=== PATIENT | female | born 1975 | race Caucasian/White ===

== ENCOUNTER → 2016-10-10 | Outpatient (CLI) | payer OTHER ==
--- NOTE | 2016-10-12 07:52 | MM ---
Reason for exam: screening (asymptomatic). Last mammogram was performed 1 year and 10 months ago. History: Family history of breast cancer in maternal grandmother. Physical Findings: A clinical breast exam by your physician is recommended on an annual basis and results should be correlated with mammographic findings. MG 3D Screening Mammo W/Cad Bilateral CC and MLO view(s) were taken. Prior study comparison: November 30, 2014, bilateral MG screening mammo w CAD. There are scattered fibroglandular densities. 7mm circumscribed mass 6-7 o'clock subareolar right breast. New calcifications 7 o'clock central anterior right breast. ASSESSMENT: Incomplete: need additional imaging evaluation, BI-RAD 0 RECOMMENDATION: Special view mammogram and ultrasound of the right breast. [facility] will attempt to contact patient to return for supplemental views and ultrasound.
== END | disposition home or self-care (01) ==
LOC: RADMAMWWP 12:28
PROVIDERS: ATTEND Family Medicine
DX: Z12.31 Encounter for screening mammogram for malignant neoplasm of breast (principal)
CPT/HCPCS: 77063; G0202

== ENCOUNTER → 2016-10-19 | Outpatient (CLI) | payer OTHER ==
--- NOTE | 2016-10-19 14:48 | MM ---
Reason for exam: additional evaluation requested from abnormal screening. Last mammogram was performed less than 1 month ago. History: Family history of breast cancer in maternal grandmother. Physical Findings: Nurse did not find any significant physical abnormalities on exam. MG 3D Work Up W/Cad RT LM, CC with magnification, and LM with magnification view(s) were taken of the right breast. Prior study comparison: October 10, 2016, bilateral MG 3d screening mammo w/cad. November 30, 2014, bilateral MG screening mammo w CAD. Calcifications in the right breast are likely within the skin. 6 month follow up is recommended. These results were verbally communicated with the patient and result sheet given to the patient on 10/19/16. ASSESSMENT: Incomplete: need additional imaging evaluation, BI-RAD 0 RECOMMENDATION: Ultrasound of the right breast.
--- NOTE | 2016-10-19 14:50 | USB ---
Reason for exam: additional evaluation requested from abnormal screening. History: Family history of breast cancer in maternal grandmother. US Breast Workup Limited RT Right breast ultrasound demonstrates a 0.5 x 0.5 x 0.6cm oval, solid, hypoechoic lesion at 7 o'clock for which a tissue biopsy is recommended. These results were verbally communicated with the patient and result sheet given to the patient on 10/19/16. ASSESSMENT: Suspicious, BI-RAD 4 RECOMMENDATION: Ultrasound core biopsy of the right breast. Called Dr. Crowe with mammographic findings and has scheduled an appointment for the patient for 10/25/16 at 11:[address] Alaniz. PRELIMINARY REPORT CALLED AND FAXED TO DR. ALANIZ ON 10/19/16 AT 300/TP.
== END | disposition home or self-care (01) ==
LOC: RADMAMWWP 13:33
PROVIDERS: ATTEND Family Medicine
DX: R92.8 Other abnormal and inconclusive findings on diagnostic imaging of breast (principal)
CPT/HCPCS: 76642; G0206; G0279

== ENCOUNTER → 2016-11-07 | Day surgery (SDC) | payer OTHER ==
[~2016-11-07] MED LIST: ALPRAZolam 0.25 MG TAB ONE; BACITRACIN OINT 1 EACH PACKET TOPICAL ONE; LIDOCAINE 1% INJ 10MG/ML (20 ML MDV) ONE; SODIUM BICARB 4% 5 ML VIAL (0.48 MEQ/ML) ONE
--- NOTE | 2016-11-07 14:36 | USB ---
EXAMINATION TYPE: US biopsy breast VAD RT, MG diagnostic mammo RT wo CAD DATE OF EXAM: 11/07/2016 1:10 PM CLINICAL HISTORY: 41-year-old female with R92.8 Abnormal mammo and ultrasound abnormality referred for biopsy. TECHNIQUE: Ultrasound guided core biopsy of the 7:00 position right breast. COMPARISON: 10/19/2016 FINDINGS: The procedure of ultrasound guided core biopsy was explained to the patient. Benefits, alternatives, and risks were discussed. An informed consent was then obtained. The patient was placed in supine positioning for imaging and for the procedure. The overlying skin was prepped and draped in usual sterile fashion. Lidocaine buffered with bicarbonate was used as anesthetic into the skin and subcutaneous tissue up to area of concern in the 7:00 position right breast close to the nipple. Under ultrasound guidance, a 13-gauge vacuum-assisted mammotome Elite biopsy gun was used to obtain biopsy gun device was used to obtain 7 core samples. Following this, a coil clip was left in lesion. The patient tolerated the procedure well without any immediate complication. The patient was kept in the radiology department for short stay after the procedure and then discharged home in stable condition. Postprocedure mammogram shows coil clip in place. IMPRESSION: Successful, uncomplicated ultrasound guided core biopsy of area of concern in the 7:00 position right breast, full pathology results to follow. RECOMMENDATION: 1. Follow-up pathology. 2. If benign results, six-month follow-up mammogram for right breast microcalcifications is recommended. Suspected skin calcifications. Pathology Results: Benign BREAST, RIGHT, CORE BIOPSY: CONSISTENT WITH FIBROADENOMA AND FIBROCYSTIC CHANGES INCLUDING CYSTS AND FIBROSIS. Recommendation Follow up mammogram of the right breast in 6 months. DOMINGO
== END ==
LOC: RADUSWWP 11:18 → EDSTATUS 12:20
PROVIDERS: ATTEND Surgery
DX: R92.8 Other abnormal and inconclusive findings on diagnostic imaging of breast (principal)
CPT/HCPCS: 88305; 19083; G0206; A4648; J2001

== ENCOUNTER → 2017-05-21 | Outpatient (CLI) | payer OTHER ==
--- NOTE | 2017-05-21 13:19 | MM ---
Reason for exam: follow-up at short interval from prior study. Last mammogram was performed 6 months ago. History: Family history of breast cancer in maternal grandmother. Benign US biopsy breast VAD RT of the right breast, November 07, 2016. Physical Findings: Nurse did not find any significant physical abnormalities on exam. MG 3D Diag Mammo W/Cad RT CC and MLO view(s) were taken of the right breast. Prior study comparison: November 07, 2016, right breast MG diagnostic mammo RT wo CAD. October 19, 2016, right breast MG 3d work up w/cad RT. The breast tissue is heterogeneously dense. This may lower the sensitivity of mammography. Previous ultrasound core biopsy in the right breast. There is chronic nodularity in the right breast. There is no dominant lesion. No significant new findings when compared with previous films. These results were verbally communicated with the patient and result sheet given to the patient on 05/21/17. ASSESSMENT: Benign, BI-RAD 2 RECOMMENDATION: Return to routine screening mammogram schedule for both breasts. Back on schedule.
== END | disposition home or self-care (01) ==
LOC: RADMAMWWP 12:41
PROVIDERS: ATTEND Surgery
DX: R92.8 Other abnormal and inconclusive findings on diagnostic imaging of breast (principal)
CPT/HCPCS: G0206; G0279

== ENCOUNTER → 2019-10-15 | Outpatient (CLI) | payer BC ==
--- NOTE | 2019-10-16 11:17 | MM ---
Reason for exam: screening (asymptomatic). Last mammogram was performed 2 years and 5 months ago. History: Family history of breast cancer in maternal grandmother. Benign US biopsy breast VAD RT of the right breast, November 07, 2016. Took hormonal contraceptives for 10 years. Physical Findings: A clinical breast exam by your physician is recommended on an annual basis and results should be correlated with mammographic findings. MG 3D Screening Mammo W/Cad Bilateral CC and MLO view(s) were taken. Prior study comparison: May 21, 2017, right breast MG 3d diag mammo w/cad RT. November 07, 2016, right breast MG diagnostic mammo RT wo CAD. There are scattered fibroglandular densities. No suspicious abnormality. No significant changes when compared with prior studies. ASSESSMENT: Negative, BI-RAD 1 RECOMMENDATION: Routine screening mammogram of both breasts in 1 year.
== END | disposition home or self-care (01) ==
LOC: RADMAMWWP 10:51
PROVIDERS: ATTEND Family Medicine
DX: Z12.31 Encounter for screening mammogram for malignant neoplasm of breast (principal)
CPT/HCPCS: 77063; 77067

== ENCOUNTER → 2020-08-05 | Outpatient (CLI) | payer BC ==
[2020-08-05 15:09] VITALS: BP 137/64; PULSE 81; RESP 18; TEMP 98.4
--- NOTE | 2020-08-05 15:52 | P.GSHP ---
History of Present Illness H&P Date: 08/05/20 Chief Complaint: lump under right arm Kelly is a 45 year old white female seen in consultation for DR. Crowe regarding a fullness under her right arm. She has noticed a fullness for approximately a year. She had a bilateral mammogram in which was negative BIRADS 1. The fullness has increased in size. It is not tender. She does not complain of any lumps masses or nodules in her breast. She is not complaining of any nipple discharge or skin changes. She has no fullness in the left axilla. She is not complaining of any adenopathy in her body. She had a core biopsy of the right breast in 2017 which was benign. Caffeine: 2 cups of coffee/day Nicotine: Negative Theophylline: occasional Family History: maternal grandmother: breast and lung cancer Hormonal History: menarche: 10 , breast fed: yes, first child born at 20 menopause: periods regular last one 07-20-20 BCP: 8 years hormones: none Surgical history: 1. lap band 2. cervical dysplasia 3. umbilical hernia Medical History: obesity Social History: smoke: none alcohol: daily drugs: Marijuana daily - Constitutional Constitutional: Denies chills, Denies fever - EENT Eyes: denies blurred vision, denies pain Ears: deny: decreased hearing, tinnitus Ears, nose, mouth and throat: Denies headache, Denies sore throat - Breasts Breasts: bilateral: as per HPI - Cardiovascular Cardiovascular: Denies chest pain, Denies shortness of breath - Respiratory Respiratory: Denies cough, Denies 7 - Gastrointestinal Gastrointestinal: Denies abdominal pain, Denies diarrhea, Denies nausea, Denies vomiting - Genitourinary (Female) Genitourinary: Denies dysuria, Denies hematuria - Menstruation Menstruation: Reports period normal - Musculoskeletal Musculoskeletal: Denies myalgias - Integumentary Integumentary: Denies pruritus, Denies rash - Neurological Neurological: Denies numbness, Denies weakness - Psychiatric Psychiatric: Denies anxiety, Denies depression - Endocrine Endocrine: Denies fatigue, Denies weight change - Hematologic/Lymphatic Comment: none - Allergic/Immunologic Allergic/Immunologic: Reports as per HPI Past Medical History History of Any Multi-Drug Resistant Organisms: None Reported Smoking Status: Former smoker Medications and Allergies Home Medications Medication Instructions Recorded Confirmed Type No Known Home Medications 08/05/20 08/05/20 History Allergies Allergy/AdvReac Type Severity Reaction Status Date / Time bee venom protein (honey bee) Allergy Rash/Hives Unverified 08/05/20 15:05 Surgical - Exam Vital Signs Temp Pulse Resp BP Pulse Ox 98.4 F 81 18 137/64 95 08/05/20 15:05 08/05/20 15:05 08/05/20 15:05 08/05/20 15:05 08/05/20 15:05 BMI 57.4 - General obese - Eyes normal ocular movement - ENT no hearing loss - Neck no masses, trachea midline - Respiratory normal respiratory effort, clear to auscultation - Cardiovascular Rhythm: regular Heart Sounds: normal: S1, S2 - Abdomen Abdomen: soft, non tender, no guarding, no rigid, no rebound - Integumentary normal turgor - Neurologic no disoriented, no combative - Musculoskeletal normal gait - Psychiatric oriented to time, oriented to person, oriented to place, speech is normal, memory intact breast exam: BRA 48C inspection: Bilateral grade 3 ptosis, left breast larger than right breast Palpation: Right breast: Multiple positional exam fibrocystic changes, prominent axillary breast tissuedominant masses or nodules of concern Right axilla: Prominent axillary breast tissue, no adenopathy of concern Left breast: Multi-positional exam fibrocystic changes, no dominant masses or nodules of concern Left axilla: No adenopathy of concern Results [place] [address], negative BIRADS 1 Assessment and Plan Assessment: Impression: 1. Asymmetry of the breast with left breast being larger than the right breast 2. More prominent right axillary breast tissue no discrete dominant masses or nodules of concern 3. BMI 57.4 4. Nothing which would warrant a biopsy at this time Plan: 1. right axillary ultrasound 2. follow up after ultrasound CC: Dr. Crowe encounter 30 minutes, > 50% of time in planning and counselling
--- NOTE | 2020-08-08 12:41 | USB ---
Reason for exam: clinical finding. History: Family history of breast cancer in maternal grandmother. Benign US biopsy breast VAD RT of the right breast, November 07, 2016. Took hormonal contraceptives for 10 years. US Breast Axilla RT Right axilla breast ultrasound demonstrates a 0.8 x 1.1 x 1.0cm hypoechoic, probable lymph node at the axilla. ASSESSMENT: Benign, BI-RAD 2 RECOMMENDATION: Return to routine screening mammogram schedule for both breasts. Back on schedule for September 2020. Manage patient on a clinical basis.
== END | disposition home or self-care (01) ==
LOC: WWCWWP 14:52
PROVIDERS: ATTEND Surgery
DX: R22.31 Localized swelling, mass and lump, right upper limb (principal)

== ENCOUNTER → 2020-08-12 | Outpatient (CLI) | payer BC ==
[2020-08-12 12:55] VITALS: BP 152/100; PULSE 92; RESP 18
--- NOTE | 2020-08-12 13:07 | P.PN ---
Progress Note - Text Progress Note Date: 08/12/20 Sherita is a 45-year-old white female seen in consultation for Dr. Crowe on regarding a fullness under her right arm. She had noted a fullness for approximately a year. She had a bilateral mammogram on which was negative BIRADS 1. The fundus and the area was felt to have increased in size. It was not tender. She did not complain of any lumps masses or nodules otherwise in her breast. She did not have any nipple discharge or skin changes. She was not complaining of any adenopathy anyplace else in her body. On examination on she was noted to have prominent right axillary breast tissue no adenopathy of concern no lesions of concern in either breast and no adenopathy of concern in the left axilla. She was recommended to undergo a right axillary ultrasound. This was performed on . Results of this revealed a probable lymph node in the axilla which was not worrisome this was benign BIRADS 2 and routine screening of both breast in September 2020. Impression: 1. BIRAD 2 right axillary ultrasound nothing to warrant biopsy of the axillary tissue Plan: 1. Bilateral mammogram at her normal interval in September 2020 with appointment here after that 2. Repeat right axillary ultrasound at that time to follow lymph node CC; Dr. Crowe encounter 10 minutes, > 50 % 0f time in planning and counselling
== END | disposition home or self-care (01) ==
LOC: WWCWWP 12:17
PROVIDERS: ATTEND Surgery
DX: Z53.9 Procedure and treatment not carried out, unspecified reason (principal)

== ENCOUNTER → 2020-10-27 | Outpatient (CLI) | payer BC ==
--- NOTE | 2020-10-28 11:48 | MM ---
Reason for exam: additional evaluation requested from prior study. Last mammogram was performed 1 year ago. History: Family history of breast cancer in maternal grandmother. Benign US biopsy breast VAD RT of the right breast, November 07, 2016. Took hormonal contraceptives for 10 years. Physical Findings: Nurse did not find any significant physical abnormalities on exam. MG 3D Diag Mammo W/Cad TY Bilateral CC and MLO view(s) were taken. Prior study comparison: October 15, 2019, bilateral MG 3d screening mammo w/cad. May 21, 2017, right breast MG 3d diag mammo w/cad RT. There are scattered fibroglandular densities. No significant new findings when compared with previous films. These results were verbally communicated with the patient and result sheet given to the patient on 10/27/20. ASSESSMENT: Incomplete: need additional imaging evaluation, BI-RAD 0 RECOMMENDATION: Ultrasound of the right breast.
--- NOTE | 2020-10-28 11:50 | USB ---
Reason for exam: additional evaluation requested from abnormal screening. History: Family history of breast cancer in maternal grandmother. Benign US biopsy breast VAD RT of the right breast, November 07, 2016. Took hormonal contraceptives for 10 years. US Breast Axilla RT Right breast axilla ultrasound demonstrates a 1.1 x 0.7 x 0.8cm round, hypoechoic possible lymph node versus 1.1 x 1.0 x 0.9cm, stable to slightly smaller over the course of 3 months. Additional 6 month follow up recommended. Scanned right axilla. These results were verbally communicated with the patient and result sheet given to the patient on 10/27/20. ASSESSMENT: Probably benign, BI-RAD 3 RECOMMENDATION: Ultrasound of the right breast in 6 months. (axilla)
== END | disposition home or self-care (01) ==
LOC: RADMAMWWP 12:54
PROVIDERS: ATTEND Surgery
DX: R92.8 Other abnormal and inconclusive findings on diagnostic imaging of breast (principal)
CPT/HCPCS: 77062; 77066

== ENCOUNTER → 2021-04-26 | Outpatient (CLI) | payer BC ==
--- NOTE | 2021-04-28 13:50 | USB ---
Reason for exam: clinical finding. History: Family history of breast cancer in maternal grandmother. Benign US biopsy breast VAD RT of the right breast, November 07, 2016. Took hormonal contraceptives for 10 years. Physical Findings: Nurse did not find any significant physical abnormalities on exam. US Breast Limited RT Right limited breast ultrasound including focal area of concern, retroareolar and axilla demonstrates a 1.0 x 0.7 x 0.9cm questionable lymph node at the axilla. These results were verbally communicated with the patient and result sheet given to the patient on 04/26/21. ASSESSMENT: Probably benign, BI-RAD 3 RECOMMENDATION: Routine screening mammogram of both breasts in 6 months. Back on schedule. Ultrasound of the right breast in 6 months. (axillary) Manage on a clinical basis with regard to palpable.
== END | disposition home or self-care (01) ==
LOC: RADUSWWP 10:24
PROVIDERS: ATTEND Surgery
DX: R92.8 Other abnormal and inconclusive findings on diagnostic imaging of breast (principal); Z80.3 Family history of malignant neoplasm of breast; Z79.3 Long term (current) use of hormonal contraceptives

== ENCOUNTER → 2021-05-04 | Outpatient (CLI) | payer BC ==
[2021-05-04 11:52] VITALS: BP 153/106; PULSE 77; RESP 18; TEMP 98
--- NOTE | 2021-05-04 12:00 | P.PN ---
Subjective Progress Note Date: 05/04/21 Principal diagnosis: right axilla tenderness Kelly is a 45 year old white female seen in consultation for DR. Crowe regarding a fullness under her right arm. She has noticed a fullness for approximately a year[place] [id number] which was negative BIRADS 1. The fullness has increased in size. It was not tender. She did not complain of any lumps masses or nodules in her breast. She was not complaining of any nipple discharge or skin changes. She had no fullness in the left axilla. She was not complaining of any adenopathy in her body. She had a core biopsy of the right breast in 2017 which was benign. She [place] [address] which did not find any lesions of concern in the left breast however a right breast ultrasound was recommended. The right breast ultrasound at that time revealed a possible lymph node and a 6 month follow-up ultrasound was recommended. [place] [id number]. This revealed a 1 x 0.9 cm questionable lymph node in the axilla. This was felt to be probably benign BIRADS 3. Routine screening of both breasts in 6 months and an ultrasound of the right breast was recommended. Caffeine: 2 cups of coffee/day Nicotine: Negative chocolate: occasional Family History: maternal grandmother: breast and lung cancer Hormonal History: menarche: 10 , breast fed: yes, first child born at 20 menopause: periods regular last one --20 BCP: 8 years hormones: none Surgical history: 1. lap band 2. cervical dysplasia 3. umbilical hernia Medical History: obesity Social History: smoke: none alcohol: daily drugs: Marijuana daily - Constitutional Constitutional: Denies chills, Denies fever - EENT Eyes: denies blurred vision, denies pain Ears: deny: decreased hearing, tinnitus Ears, nose, mouth and throat: Denies headache, Denies sore throat - Breasts Breasts: bilateral: as per HPI - Cardiovascular Cardiovascular: Denies chest pain, Denies shortness of breath - Respiratory Respiratory: Denies cough - Gastrointestinal Gastrointestinal: Denies abdominal pain, Denies diarrhea, Denies nausea, Denies vomiting - Genitourinary (Female) Genitourinary: Denies dysuria, Denies hematuria - Menstruation Menstruation: Reports period normal - Musculoskeletal Musculoskeletal: Denies myalgias - Integumentary Integumentary: Denies pruritus, Denies rash - Neurological Neurological: Denies numbness, Denies weakness - Psychiatric Psychiatric: Denies anxiety, Denies depression - Endocrine Endocrine: Denies fatigue, Denies weight change - Hematologic/Lymphatic Comment: none - Allergic/Immunologic Allergic/Immunologic: Reports as per HPI Past Medical History History of Any Multi-Drug Resistant Organisms: None Reported Smoking Status: Former smoker Objective - Vital Signs Vital signs: Intake & Output 05/03/21 05/04/21 05/04/21 18:59 06:59 18:59 Weight 139.706 kg - Exam BMI 56.3 - Constitutional General appearance: Present: cooperative - EENT Eyes: Present: EOMI ENT: Present: hearing grossly normal - Neck Neck: Present: normal ROM - Respiratory Respiratory: bilateral: CTA - Cardiovascular Rhythm: regular Heart sounds: normal: S1, S2 - Integumentary Integumentary: Present: normal turgor - Musculoskeletal Musculoskeletal: Present: gait normal - Psychiatric Psychiatric: Present: A&O x's 3, appropriate affect, intact judgment & insight - Additional findings Additional findings: Breast Exam: BRA: 48C inspection: Bilateral grade 3 ptosis Palpation: Right breast: Multi-positional exam fibrocystic changes, no dominant masses or nodules of concern Right axilla: No adenopathy of concern redundant axillary tissue Left breast: Multiple positional exam fibrocystic changes, no dominant masses or nodules of concern Left axilla: No adenopathy of concern Assessment and Plan Assessment: Impression: 1. Fibrocystic breast tissue bilateral 2. Ultrasound right breast 1 x 0.9 cm questionable axillary lymph node felt to be probably benign 3. BMI 56.3 Plan: 1. Repeat bilateral mammogram in 6 months with ultrasound of the right axilla as well 2. Patient to call sooner if she finds anything of concern CC:Dr. Crowe
== END ==
LOC: WWCWWP 11:44
PROVIDERS: ATTEND Surgery
DX: N60.11 Diffuse cystic mastopathy of right breast (principal); N60.12 Diffuse cystic mastopathy of left breast; E66.9 Obesity, unspecified; Z68.43 Body mass index [BMI] 50.0-59.9, adult; Z87.891 Personal history of nicotine dependence; Z91.030 Bee allergy status

== ENCOUNTER → 2021-12-27 | Outpatient (CLI) | payer BC ==
--- NOTE | 2021-12-28 08:48 | USB ---
Reason for exam: clinical finding. History: Family history of breast cancer in maternal grandmother. Benign US biopsy breast VAD RT of the right breast, November 07, 2016. Took hormonal contraceptives for 10 years. Physical Findings: A clinical breast exam by your physician is recommended on an annual basis and results should be correlated with mammographic findings. US Breast Axilla RT Right breast axilla ultrasound demonstrates a 1.0 x 0.9 x 0.6cm lymph node at the axilla, unchanged from 10/27/20, 11 x 8 x 7mm at that time. Only right axilla scanned. ASSESSMENT: Incomplete: need additional imaging evaluation, BI-RAD 0 RECOMMENDATION: Follow-up diagnostic mammogram of both breasts. (due now) Patient is scheduled for bilateral screening mammogram on 01/23/22.
== END | disposition home or self-care (01) ==
LOC: RADUSWWP 15:40
PROVIDERS: ATTEND Surgery
DX: R92.8 Other abnormal and inconclusive findings on diagnostic imaging of breast (principal); Z80.3 Family history of malignant neoplasm of breast

== ENCOUNTER → 2022-01-23 | Outpatient (CLI) | payer BC ==
--- NOTE | 2022-01-24 09:51 | MM ---
Reason for exam: screening (asymptomatic). Last mammogram was performed 1 year and 3 months ago. History: Family history of breast cancer in maternal grandmother. Benign US biopsy breast VAD RT of the right breast, November 07, 2016. Took hormonal contraceptives for 10 years. Physical Findings: A clinical breast exam by your physician is recommended on an annual basis and results should be correlated with mammographic findings. MG 3D Screening Mammo W/Cad Bilateral CC and MLO view(s) were taken. Prior study comparison: October 27, 2020, bilateral MG 3d diag mammo w/cad TY. October 15, 2019, bilateral MG 3d screening mammo w/cad. There are scattered fibroglandular densities. Previous mammotome biopsy in the right breast. There is chronic nodularity in the right breast. There is no discrete abnormality. ASSESSMENT: Benign, BI-RAD 2 RECOMMENDATION: Routine screening mammogram of both breasts in 1 year.
== END | disposition home or self-care (01) ==
LOC: RADMAMWWP 11:11
PROVIDERS: ATTEND Family Medicine
DX: Z12.31 Encounter for screening mammogram for malignant neoplasm of breast (principal); Z80.3 Family history of malignant neoplasm of breast
CPT/HCPCS: 77063; 77067

== ENCOUNTER → 2023-08-07 | Outpatient (CLI) | payer BC ==
--- NOTE | 2023-08-08 08:45 | MM ---
Reason for Exam: Screening (asymptomatic). Last mammogram was performed 1 year(s) and 7 month(s) ago. Patient History: Menarche at age 10. First Full-Term at age 20. Premenopausal. Patient used Hormonal Contraceptives for 10 years. 11/07/2016, Benign Core Biopsy on the right side. Maternal grandmother had breast cancer. Last menstrual period: 08/03/2023 Risk Values: Sabrina 5 year model risk: 1.0%. NCI Lifetime model risk: 9.4%. Prior Study Comparison: 10/15/2019 Bilateral Screening Mammogram, [facility]. 10/27/2020 Bilateral Diagnostic Mammogram, [facility]. 01/23/2022 Bilateral Screening Mammogram, [facility]. Tissue Density: The breast tissue is heterogeneously dense. This may lower the sensitivity of mammography. Findings: Analyzed By CAD. Right breast biopsy clip. There is no suspicious group of microcalcifications or new suspicious mass. Overall Assessment: Benign, BI-RAD 2 Management: Screening Mammogram of both breasts in [address] [facility] will attempt to contact patient to return for supplemental views and ultrasound if indicated. Patient should continue monthly self-breast exams. A clinical breast exam by your physician is recommended on an annual basis. This exam should not preclude additional follow-up of suspicious palpable abnormalities. Note on Sabrina scores and lifetime risk: 1. A Sabrina score greater than 3% is considered moderate risk. If this is the case, consider specialist referral to assess eligibility for a risk reducing agent. 2. If overall lifetime risk for the development of breast cancer is 20% or higher, the patient may qualify for future screening with alternating mammogram and breast MRI. Electronically signed and approved by: Teodoro Garcia DO
== END | disposition home or self-care (01) ==
LOC: RADMAMWWP 15:17
PROVIDERS: ATTEND Family Medicine
DX: Z12.31 Encounter for screening mammogram for malignant neoplasm of breast (principal); Z80.3 Family history of malignant neoplasm of breast
CPT/HCPCS: 77063; 77067

== ENCOUNTER 2024-04-08 10:13 | Day surgery (SDC) | payer BC ==
[2024-04-06 13:52] VITALS: BMI 56.7
[2024-04-08 10:57] VITALS: TEMP 97.6
[2024-04-08] MEDS: LACTATED RINGERS 1,000 ML IV SCH (10:58)
[2024-04-08] MEDS: IV FLUID CONTINUATION 1,000 ML IV ONE (10:58)
[2024-04-08] MEDS ORDERED: PROPOFOL 10 MG/ML 20 ML VIAL IV ONE (11:18)
--- NOTE | 2024-04-08 11:31 | P.PCN ---
Date of Procedure: 04/08/24 Procedure(s) Performed: BRIEF HISTORY: Patient is a 48-year-old pleasant white female scheduled for an elective colonoscopy as a part of screening for colorectal neoplasia. PROCEDURE PERFORMED: Colonoscopy. PREOPERATIVE DIAGNOSIS: Screening for colon cancer. IV sedation per Anesthesia. PROCEDURE: After informed consent was obtained, the patient, was brought into the endoscopy unit. IV sedation was administered by Anesthesia under continuous monitoring. Digital rectal examination was normal. Initially the Olympus CF-160 flexible video colonoscope was then inserted in the rectum, gradually advanced into the cecum without any difficulty. Careful examination was performed as the scope was gradually being withdrawn. Ileocecal valve and the appendiceal orifice were visualized and appeared normal. Prep was excellent. Mucosa of the cecum, ascending colon, transverse colon, descending colon, sigmoid colon, and rectum appeared normal. Retroflexion was performed in the rectum and no lesions were seen. The patient tolerated the procedure well. IMPRESSION: Normal-appearing colon from rectum to cecum with no evidence of colorectal neoplasia. RECOMMENDATIONS: Findings of this examination were discussed with the patient as well as the family. She was advised to have repeat screening colonoscopy in 10 years..
[2024-04-08 11:57] VITALS: BP 134/78; PULSE 69; RESP 18
== END 2024-04-08 12:33 | disposition home or self-care (01) ==
LOC: ORWHC2ENDO 10:13
PROVIDERS: ATTEND Internal Medicine Gastroenterology
DX: Z12.11 Encounter for screening for malignant neoplasm of colon (principal); I10 Essential (primary) hypertension; E66.01 Morbid (severe) obesity due to excess calories; Z98.890 Other specified postprocedural states
CPT/HCPCS: 81025; 45378; J2704